=== PATIENT | female | born 1995 | race African-American/Black ===

== ENCOUNTER 2020-05-25 10:40 | Emergency (ER) | payer OTHER, SELFPAY ==
--- NOTE | ~2020-05-25 | XR_ITS ---
XR knee RT 3V 05/25/2020 11:06 INDICATION: Right knee pain PROCEDURE: 3 views right knee COMPARISON: No prior studies for comparison. FINDINGS: Fracture, dislocation or subluxation is not identified. The soft tissues appear within norm al limits. No foreign bodies are identified. IMPRESSION: 1: NO ACUTE BONE OR JOINT ABNORMALITY IDENTIFIED. Reviewed, dictated and finalized at location B. TORIAL SUPERVISOR
[2020-05-25 10:51] VITALS: BP 132/80; PULSE 91; RESP 16; TEMP 37.1; O2SAT 99
--- NOTE | 2020-05-25 10:55 | ED.LOWEXIN ---
HPI - Extremity Injury (Lower) General Chief Complaint: Extremity Injury, Lower Stated Complaint: Knee Pain Source: patient Mode of arrival: ambulatory Limitations: no limitations History of Present Illness HPI Narrative: Patient is a 25-year-old female who presents complaining of right knee pain. She reports exercising at the gym on Saturday, which she felt my knee feels weird . She reports no known injury, however she is difficulty ascending and descending steps. She denies taking kqzj-xsj-[id number] medications for pain. She denies swelling. She denies all other complaints. Related Data Home Medications Medication Instructions Recorded Confirmed norethindrone-e.estradiol-iron [Lo tablet 05/25/20 Loestrin Fe] Allergies Allergy/AdvReac Type Severity Reaction Status Date / Time No Known Allergies Allergy Unverified 06/18/18 12:24 Review of Systems Review of Systems: Narrative: CONSTITUTIONAL: Denies fever, chills, or sweats. EYES: Denies visual changes, redness, or discharge. ENT: Denies rhinorrhea, congestion, sore throat, or otalgia. CARDIOVASCULAR: Denies chest pain, palpitations, or edema. RESPIRATORY: Denies cough or dyspnea. GASTROINTESTINAL: Denies abdominal pain, nausea, vomiting, or diarrhea. GENITOURINARY: Denies dysuria or hematuria. SKIN: Denies rash or itching. MUSCULOSKELETAL: Right knee pain NEUROLOGIC: Denies headache, numbness, dizziness, or weakness. PSYCHIATRIC: Denies anxiety or depression. PMFSH Past Medical History Medical History No significant past medical history Surgical History Surgical History No significant past surgical history Family History Family History (Updated 05/25/20 @ 10:59 by ANDRES Field) Other No significant family history Social History Social History (Updated 05/25/20 @ 10:59 by ANDRES Field) Smoking status: Never smoker Alcohol intake: never Substance use: never Living arrangements: with family Exam Narrative: Exam Narrative: GENERAL: Well-appearing, well-nourished, and in no acute distress. HEAD: Normocephalic, atraumatic. EYES: No redness or drainage. ENT: Mucous membranes pink and moist. CHEST: No respiratory distress. EXTREMITIES: Right knee: Normal range of motion. No edema or erythema. Full flexion and extension, distal sensation intact, good capillary refill SKIN: Warm, dry, no rash. NEURO: No focal deficits. Alert and oriented x3. Gait steady. PSYCH: Normal affect. No signs of depression or anxiety. Course Vital Signs Vital signs: Vital Signs Temperature 37.1 C 05/25/20 10:51 Pulse Rate 91 05/25/20 10:51 Respiratory Rate 16 05/25/20 10:51 Blood Pressure 132/80 05/25/20 10:51 Pulse Oximetry 99 05/25/20 10:51 Temperature 37.1 C 05/25/20 10:51 Pulse Rate 91 05/25/20 10:51 Respiratory Rate 16 05/25/20 10:51 Blood Pressure 132/80 05/25/20 10:51 Pulse Oximetry 99 05/25/20 10:51 Reviewed. Patient has been instructed to follow-up with her PCP regarding her blood pressure. MDM - Extremity Injury (Lower) MDM Narrative Medical decision making narrative: Patient's x-ray shows no acute fractures, dislocations or injury. Hayden wrap applied. Discussed with patient most likely musculoskeletal. Follow-up given for orthopedics. Patient instructed to take Tylenol or ibuprofen for pain. Patient is stable for discharge with outpatient follow-up as discussed. Differential Diagnosis Differential diagnosis: Likely acute internal derangement of knee and other (Sprain, strain, fracture) Medical Records Attestation: I reviewed the patient's medical records. Imaging Data Radiologist's impression: ITS Impressions Knee X-Ray 05/25/20 11:09 IMPRESSION: 1: NO ACUTE BONE OR JOINT ABNORMALITY IDENTIFIED. Critical Care Time Critical Care Time Critic
== END 2020-05-25 11:19 | disposition home or self-care (01) ==
PROVIDERS: Emergency Provider Nurse Practitioner
DX: S86.911A Strain of unspecified muscle(s) and tendon(s) at lower leg level, right leg, initial encounter (principal); X58.XXXA Exposure to other specified factors, initial encounter
CPT/HCPCS: 73562; 99213; G0463

== ENCOUNTER 2024-01-10 10:59 | Outpatient (CLI) | payer OTHER, SELFPAY ==
[2024-01-10 12:25] LABS: HIV 1/2 Ab P24 Ag Result Negative (Negative)
[2024-01-10 12:34] LABS: Hepatitis C Virus Antibody Negative (Negative)
[2024-01-10 16:43] LABS: Free T4 Free Thyroxine Reflex 0.75 ng/dL (0.78-2.19)
[2024-01-13 11:26] LABS: Rapid Plasma Reagin Non-Reactive (NonReactive)
[2024-01-15 02:24] LABS: Hepatitis Be Antibody NON-REACTIVE (NON-REACTIVE)
== END 2024-01-10 11:00 | disposition home or self-care (01) ==
LOC: ANHLAB 11:01
PROVIDERS: Visit Provider Nurse Practitioner Obstetrics & Gynecology
DX: Z11.3 Encounter for screening for infections with a predominantly sexual mode of transmission (principal); E04.9 Nontoxic goiter, unspecified
CPT/HCPCS: 36415; 84439; 84443; 86592; 86703; 86707; 86803; G0432

== ENCOUNTER 2024-02-03 10:30 | Outpatient (CLI) | payer OTHER, SELFPAY ==
--- NOTE | ~2024-02-03 | US_ITS ---
EXAMINATION: US thyroid DATE: 02/03/2024 11:12 INDICATION: Nontoxic goiter, unspecified. TECHNIQUE: Multiple ultrasound images of the thyroid were obtained. COMPARISON: None. FINDINGS: The right thyroid lobe measures 5.5 x 1.3 x 2.3 cm. The left thyroid lobe measures 4.6 x 1.3 x 1.9 c m. There is diffusely coarsened echotexture in the thyroid. Vascularity is increased. IMPRESSION: 1. Heterogeneous, hypervascular thyroid, consistent with chronic lymphocytic (Simone) thyroiditis. Reviewed, dictated and finalized at location A. IMPRESSION: 1. Heterogeneous, hypervascular thyroid, consistent with chronic lymphocytic (H ashimoto) thyroiditis.
== END 2024-02-03 10:31 | disposition home or self-care (01) ==
LOC: ANHIMG 10:34
PROVIDERS: Visit Provider Nurse Practitioner Obstetrics & Gynecology
DX: E04.9 Nontoxic goiter, unspecified (principal); R94.6 Abnormal results of thyroid function studies
CPT/HCPCS: 76536

== ENCOUNTER 2024-02-06 08:22 | Outpatient (CLI) | payer OTHER, SELFPAY | END 2024-02-06 08:23 | disposition home or self-care (01) | PROVIDERS: Visit Provider Nurse Practitioner Obstetrics & Gynecology | DX: R79.89 Other specified abnormal findings of blood chemistry (principal) | CPT/HCPCS: 36415; 84436; 84443 ==

== ENCOUNTER 2025-03-23 07:20 | Outpatient (CLI) | payer OTHER, SELFPAY ==
--- NOTE | ~2025-03-23 | US_ITS ---
EXAMINATION: US thyroid DATE: 03/23/2025 07:50 INDICATION: Simone's thyroiditis TECHNIQUE: Multiple ultrasound images of the thyroid were obtained. COMPARISON: None. FINDINGS: The right thyroid lobe measures 5.7 x 2.1 x 2.7 cm. The left thyroid lobe measures 5.1 x 2.0 x 2.5 cm. Times isthmus measures 9 mm in thickness. No discrete nodules identified. There is diffuse decreased echogenicity with mild coarsened echotexture throughout the thyroid. Prominent diffuse increased v ascular flow throughout the thyroid on color Doppler consistent with thyroiditis. IMPRESSION: 1. Diffuse increased vascular flow throughout the enlarged thyroid consistent with thyroiditis. No discrete thyroid nodules identified. Reviewed, dictated and finalized at location A. IMPRESSION: 1. Diffuse increased vascular flow throughout the enlarged thyroid consistent w ith thyroiditis. No discrete thyroid nodules identified.
--- OUTSIDE RECORDS SUMMARY | 2025-03-23 07:26 | XMS_ITS | Clinical Summary ---
Author Organization [facility] Address [address] [place] [address] Care Team Providers Care Roof Truss Detailer Name Role Phone Unknown, Provider Primary Care Provider Unavaila ble Source Comments [facility],non-owned Affiliates and Associated Physician Practices is amultiple site organization consisting of ambulatory clinics and hospital sitesin [place], [place], [place] and [place]. This disclosure is being madepursuant to the Care Everywhere program and may not contain all information available regarding this patient. Last updated 18.[facility] Allergies No known active allergies Medications * Be aware that medications may not be up to date on this document. Alwaysverify current medications with the patient. 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 Gender Identity Not on file Sexual Orientation Not on file Last Filed Vital Signs Vital Sign Reading Time Taken Comments Blood Pressure 124/82 03/14/2021 5:41 PM CDT Pulse 85 03/14/2021 5:41 PM CDT Temperature 36.8 C (98.2 F) 03/14/2021 5:41 PM CDT Respiratory Rate 18 03/14/2021 5:41 PM CDT Oxygen Saturation 97% 03/14/2021 5:41 PM CDT Inhaled Oxygen Concentration - - Weight 86.2 kg (190 lb) 03/14/2021 5:41 PM CDT Height 170.2 cm (5' 7) 03/14/2021 5:41 PM CDT Body Mass Index 29.76 03/14/2021 5:41 PM CDT Plan of Treatment Health Maintenance Due Date Last Done Comments HIV SCREENING 2009 HEPATITIS C SCREENING 04/15/2012 DTAP/TDAP/TD VACCINES (1 - Tdap) 2013 HEPATITIS B VACCINE (1 of 3 - 19+ 3-dose series) 2013 PAP SMEAR 2015 HPV VACCINE (1 - 3-dose SCDM series) 2021 DEPRESSION SCREENING 06/24/2024 COVID-19 VACCINE (1 - 2023-2 5 season) 2025 INFLUENZA VACCINE (#1) 2025 ZOSTER VACCINE (1 of 2) 2044 HIB VACCINE Aged Out No longer eligi ble based on patient's age to complete this topic MENINGOCOCCAL (Group B) VACC INE SHARED DECISION-MAKING Aged Out No longer eligibl e based on patient's age to complete this topic MENINGOCOCCAL GROUPS A/C/Y/W VACCINE Aged Out No longer eligible b ased on patient's age to complete this topic PNEUMOCOCCAL VACCINE Aged Out No long er eligible based on patient's age to complete this topic Insurance [employer] Care Teams Roof Truss Detailer Relationship Specialty Start Date End Date Unknown, Provider PCP - General 03/14/21
== END 2025-03-23 07:21 | disposition home or self-care (01) ==
PROVIDERS: PCP Internal Medicine; Visit Provider Internal Medicine
DX: E06.3 Autoimmune thyroiditis (principal)
CPT/HCPCS: 76536

== ENCOUNTER 2025-05-05 08:23 | Outpatient (CLI) | payer OTHER, SELFPAY ==
--- OUTSIDE RECORDS SUMMARY | 2025-05-05 08:39 | XMS_ITS | Clinical Summary ---
Author Organization [facility] Address [address] [place] [address] Care Team Providers Care Editorial Manager Name Role Phone Unknown, Provider Primary Care Provider Unavaila ble Source Comments [facility],non-owned Affiliates and Associated Physician Practices is amultiple site organization consisting of ambulatory clinics and hospital sitesin [place], [place], [place] and [place]. This disclosure is being madepursuant to the Care Everywhere program and may not contain all information available regarding this patient. 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
[2025-05-05 09:24] LABS: Syphilis IgG/IgM Antibody Non-Reactive (Nonreactive)
[2025-05-05 09:27] LABS: Hepatitis B Surface Antigen Negative (Negative)
[2025-05-05 09:35] LABS: HIV 1/2 Ab P24 Ag Result Negative (Negative)
== END 2025-05-05 08:24 | disposition home or self-care (01) ==
LOC: ANHLAB 08:25
PROVIDERS: Visit Provider Nurse Practitioner Obstetrics & Gynecology
DX: Z11.3 Encounter for screening for infections with a predominantly sexual mode of transmission (principal)
CPT/HCPCS: 36415; 86593; 86703; 86803; 87340; G0432